=== PATIENT | female | born 1980 | race American Indian/Alaskan Native ===

== ENCOUNTER 2021-04-02 11:49 | Emergency (ER) | payer SELFPAY ==
--- NOTE | 2021-04-02 12:31 | Event Note ---
ED Screening Note Date of service: 04/02/21 Time: 12:28 ED Screening Note: The patient was evaluated in the emergency department for symptoms described in the history of present illness. He/she was evaluated in the context of the global COVID-19 pandemic, which necessitated consideration that the patient might be at risk for infection with the virus that causes COVID-19. Institutional protocols and algorithms that pertain to the evaluation of patients at risk for COVID-19 are in a state of rapid change based on information released by regulatory bodies including the CDC and federal and state organizations. These policies and algorithms were followed during the patient's care in the emergency department. Please note that these policies, procedures and recommendations changed on a rapid basis. 40-year-old -[place] female presents to the emergency room complaining of abdominal pain for the last 2 weeks. She states that has been progressively getting worse. Patient also reports she has been having heavy vaginal bleeding with clots since December. Patient reports she has a history of fibroids and cysts and that is why she got a Depo shot January 14, 2021 but she still is bleeding. She does admit to tiredness. She does admit to intermittent shortness of breath and chest pain but none at this moment. Patient states she has been using toilet paper instead of pads and she is gone through several rows in a day. She states she has pressure down her pelvic area when she passes clots. Patient states she has never been transfused. She told me she does not want have a blood transfusion. This initial assessment/diagnostic orders/clinical plan/treatment(s) is/are subj ect to change based on patients health status, clinical progression and re- assessment by fellow clinical providers in the ED. Further treatment and workup at subsequent clinical providers discretion. Patient/guardian urged not to elope from the ED as their condition may be serious if not clinically assessed and managed. Initial orders include: CBC CMP type and screen PT PTT hCG urinalysis has been ordered. Discussed with patient that her conjunctiva is very pale her fingernail beds are very pale. Discussed with patient that I will place a INT and discussed once we have hard evidence that she is anemic and possibility of blood transfusion patient verbalized understanding. Patient abdomen appears to be firm round and presents as she is close to 7 months which she states that her fibroids.
[2021-04-02 13:19] LABS: Basophils # (Auto) 0.1 K/mm3 (0.0-0.1); Basophils % (Auto) 0.8 % (0.0-1.8); Eosinophils # (Auto) 0.1 K/mm3 (0.0-0.4); Eosinophils % (Auto) 1.4 % (0.0-4.3); Hematocrit 25.1 % (30.3-42.9); Hemoglobin 7.9 gm/dl (10.1-14.3); Lymphocytes # (Auto) 1.5 K/mm3 (1.2-5.4); Mean Corpuscular HGB Conc 32 % (30-34); Mean Corpuscular Volume 76 fl (79-97); Monocytes # (Auto) 0.6 K/mm3 (0.0-0.8); Monocytes % (Auto) 7.4 % (0.0-7.3); Platelet Count 324 K/mm3 (140-440)
[2021-04-02 13:26] LABS: Red Cell Distribution Width 20.7 % (13.2-15.2)
[2021-04-02 13:30] LABS: INR 1.07 (0.87-1.13)
[2021-04-02 13:31] LABS: Partial Thromboplastin Time 27.7 Sec. (24.2-36.6)
[2021-04-02 13:38] LABS: Alanine Aminotransferase 7 units/L (7-56); Albumin 3.8 g/dL (3.9-5); Blood Urea Nitrogen 6 mg/dL (7-17); Hemolysis Index 0
[2021-04-02 13:39] LABS: BUN/Creatinine Ratio 10
[2021-04-02] MEDS ORDERED: traMADol 50 MG TAB PO ONE (14:36)
--- NOTE | 2021-04-02 14:43 | Emergency Department Report ---
ED Female HPI - General Chief complaint: Abdominal Pain Stated complaint: ABD PAINS Time Seen by Provider: 04/02/21 12:26 Source: patient Mode of arrival: Ambulatory Limitations: No Limitations - History of Present Illness Initial comments: 40-year-old female with a past medical history of 15 fibroids and menorrhagia presents to the hospital complaining of worsening abdominal pain x2 weeks with continued vaginal bleeding since December 2020. While incarcerated patient received Depo-Provera shot January 14 for vaginal bleeding. She has continued to have heavy vaginal bleeding with clots since December. She is currently taking Motrin 1200 mg 3 times a day and attempt to alleviate her pain. She is using toilet paper several passes states she is going through several rolls of toilet paper in 1 day. Pain is described as intermittent, sharp, cramping in the pelvic area but radiates to the chest. Patient denies fever. She does not currently have a [facility] doctor. She denies history of blood transfusion in the past. She is not currently taking iron tablets. - Related Data Previous Rx's Medication Instructions Recorded Last Taken Type Docusate Sodium [Colace] 100 mg PO BID PRN #20 capsule 04/02/21 Unknown Rx Famotidine [Pepcid] 20 mg PO BID #30 tablet 04/02/21 Unknown Rx Ferrous Sulfate [Ferrous Sulfate 324 mg PO DAILY #30 tablet. 04/02/21 Unknown Rx 324 MG] HYDROcodone/APAP 5-325 [[place] 1 each PO Q6HR PRN #15 tablet 04/02/21 Unknown Rx 5/325] Ibuprofen [Motrin] 800 mg PO Q8HR PRN #20 tablet 04/02/21 Unknown Rx medroxyPROGESTERone ACETATE 10 mg PO QDAY #10 tablet 04/02/21 Unknown Rx [Provera] Allergies Allergy/AdvReac Type Severity Reaction Status Date / Time No Known Allergies Allergy Verified 04/02/21 11:52 ED Review of Systems ROS: Stated complaint: ABD PAINS Other details as noted in HPI Comment: All other systems reviewed and negative ED Past Medical Hx - Past Medical History Previous Medical History?: Yes Additional medical history: thyroids - Surgical History Past Surgical History?: No - Medications Home Medications: Home Medications Medication Instructions Recorded Confirmed Last Taken Type Docusate Sodium [Colace] 100 mg PO BID PRN #20 capsule 04/02/21 Unknown Rx Famotidine [Pepcid] 20 mg PO BID #30 tablet 04/02/21 Unknown Rx Ferrous Sulfate [Ferrous Sulfate 324 mg PO DAILY #30 tablet. 04/02/21 Unknown Rx 324 MG] HYDROcodone/APAP 5-325 [[place] 1 each PO Q6HR PRN #15 tablet 04/02/21 Unknown Rx 5/325] Ibuprofen [Motrin] 800 mg PO Q8HR PRN #20 tablet 04/02/21 Unknown Rx medroxyPROGESTERone ACETATE 10 mg PO QDAY #10 tablet 04/02/21 Unknown Rx [Provera] ED Physical Exam - General Limitations: No Limitations - Other Other exam information: General: No acute distress Head: Atraumatic Eyes: normal appearance ENT: Moist mucous membranes Neck: Normal appearance, no midline tenderness Chest: Clear to auscultation bilaterally CV: Mild tachycardia Abdomen: Soft, normal bowel sounds, firm enlarged uterus above the umbilicus that is tender to palpation Back: Normal inspection Extremity: Normal inspection, full range of motion Neuro: Alert O x 3, no facial asymmetry, speech clear, no gross motor sensory de ficit Psych: Appropriate behavior Skin: No rash ED Course Vital Signs 04/02/21 04/02/21 11:52 15:22 Temperature 98.7 F 98.5 F Pulse Rate 105 H 88 Respiratory 16 14 Rate Blood Pressure 108/68 111/77 [Left] O2 Sat by Pulse 96 100 Oximetry - Consultations Consultation #1: 04/02/21 15:[address] Velasco who is arrange for outpatient follow-up 1:30 PM. Recommends Provera 10 mg daily x10 days. No other work-up recommended acutely ED Medical Decision Making - Lab Data Result diagrams: 04/02/21 12:35 04/02/21 12:35 Lab Results 04/02/21 04/02/21 04/02/21 Range/Units 12:35 12:35 12:35 WBC 8.5 (4.5-11.0) K/mm3 RBC 3.30 L (3.65-5.03) M/mm3 Hgb 7.9 L (10.1-14.3) gm/dl Hct 25.1 L (30.3-42.9) % MCV 76 L (79-97) fl MCH 24 L (28-32) pg MCHC 32 (30-34) % RDW 20.7 H (13.2-15.2) % Plt Count 324 (140-440) K/mm3 Lymph % (Auto) 18.0 (13.4-35.0) % Heard % (Auto) 7.4 H (0.0-7.3) % Eos % (Auto) 1.4 (0.0-4.3) % Baso % (Auto) 0.8 (0.0-1.8) % Lymph # (Auto) 1.5 (1.2-5.4) K/mm3 Heard # (Auto) 0.6 (0.0-0.8) K/mm3 Eos # (Auto) 0.1 (0.0-0.4) K/mm3 Baso # (Auto) 0.1 (0.0-0.1) K/mm3 Seg Neutrophils % 72.4 H (40.0-70.0) % Seg Neutrophils # 6.2 (1.8-7.7) K/mm3 PT (12.2-14.9) Sec. INR (0.87-1.13) APTT (24.2-36.6) Sec. Sodium 138 (137-145) mmol/L Potassium 4.0 (3.6-5.0) mmol/L Chloride 103.9 (98-107) mmol/L Carbon Dioxide 24 (22-30) mmol/L Anion Gap 14 mmol/L BUN 6 L (7-17) mg/dL Creatinine 0.6 (0.6-1.2) mg/dL Estimated GFR > 60 ml/min BUN/Creatinine Ratio 10 % Glucose 84 (65-100) mg/dL Calcium 9.0 (8.4-10.2) mg/dL Total Bilirubin 0.30 (0.1-1.2) mg/dL AST 12 (5-40) units/L ALT 7 (7-56) units/L Alkaline Phosphatase 64 (35-129) units/L Total Protein 7.6 (6.3-8.2) g/dL Albumin 3.8 L (3.9-5) g/dL Albumin/Globulin Ratio 1.0 % HCG, Quant (0-4) mIU/mL Blood Type A POSITIVE Antibody Screen Negative 04/02/21 04/02/21 Range/Units 12:35 12:35 WBC (4.5-11.0) K/mm3 RBC (3.65-5.03) M/mm3 Hgb (10.1-14.3) gm/dl Hct (30.3-42.9) % MCV (79-97) fl MCH (28-32) pg MCHC (30-34) % RDW (13.2-15.2) % Plt Count (140-440) K/mm3 Lymph % (Auto) (13.4-35.0) % Heard % (Auto) (0.0-7.3) % Eos % (Auto) (0.0-4.3) % Baso % (Auto) (0.0-1.8) % Lymph # (Auto) (1.2-5.4) K/mm3 Heard # (Auto) (0.0-0.8) K/mm3 Eos # (Auto) (0.0-0.4) K/mm3 Baso # (Auto) (0.0-0.1) K/mm3 Seg Neutrophils % (40.0-70.0) % Seg Neutrophils # (1.8-7.7) K/mm3 PT 14.4 (12.2-14.9) Sec. INR 1.07 (0.87-1.13) APTT 27.7 (24.2-36.6) Sec. Sodium (137-145) mmol/L Potassium (3.6-5.0) mmol/L Chloride (98-107) mmol/L Carbon Dioxide (22-30) mmol/L Anion Gap mmol/L BUN (7-17) mg/dL Creatinine (0.6-1.2) mg/dL Estimated GFR ml/min BUN/Creatinine Ratio % Glucose (65-100) mg/dL Calcium (8.4-10.2) mg/dL Total Bilirubin (0.1-1.2) mg/dL AST (5-40) units/L ALT (7-56) units/L Alkaline Phosphatase (35-129) units/L Total Protein (6.3-8.2) g/dL Albumin (3.9-5) g/dL Albumin/Globulin Ratio % HCG, Quant < 2 (0-4) mIU/mL Blood Type Antibody Screen - Medical Decision Making 40-year-old female presents to the hospital with known enlarged uterus secondary to fibroids presents to the hospital with pain for the past 2 weeks and continued bleeding since December. Hemoglobin 7.9 therefore patient does not require blood transfusion at this time. Previous hemoglobin not available for review. Patient does not have [employer] has been noncompliant with follow-up conor jaentte to lack of insurance. No reports of fever or infectious symptoms. Patient taken [id number] Motrin at 1200 mg dosing without improvement. Patient will be discharged on iron tablets, tramadol, stool softeners, Pepcid, Motrin, and Provera. An appointment has been made for this Monday and outpatient follow-up is also medical clinic [employer] will be provided pt requesting norco for pain. states tramadol doesnt work Critical Care Time: No Critical care attestation.: If time is entered above; I have spent that time in minutes in the direct care of this critically ill patient, excluding procedure time. ED Disposition Clinical Impression: Fibroid uterus, Abdominal pain, Menorrhagia, Anemia Disposition: HOME / SELF CARE / HOMELESS Is pt being admited?: No Does the pt Need Aspirin: No Condition: Stable Instructions: Uterine Fibroids, Menorrhagia, Abdominal Pain (ED) Additional Instructions: Take the medication as prescribed. Follow-up with your doctor or doctor/clinic provided. Return if symptoms worsen as indicated by your discharge instructions. Prescriptions: Docusate Sodium [Colace] 100 mg PO BID PRN #20 capsule PRN Reason: Constipation Ferrous Sulfate [Ferrous Sulfate 324 MG] 324 mg PO DAILY #30 tablet. Ibuprofen [Motrin] 800 mg PO Q8HR PRN #20 tablet PRN Reason: Pain , Severe (7-10) HYDROcodone/APAP 5-325 [[place] 5/325] 1 each PO Q6HR PRN #15 tablet PRN Reason: Pain Famotidine [Pepcid] 20 mg PO BID #30 tablet medroxyPROGESTERone ACETATE [Provera] 10 mg PO QDAY #10 tablet Referrals: LEIGH ANN VELASCO MD [Staff Physician] - 04/05/21 1:30 pm ([address] [facility] [address] [place] [address]) [facility] [Provider Group] - 3-5 Days Forms: Work/School Release Form(ED) Time of Disposition: 15:49
[2021-04-02 15:24] VITALS: BP 111/77
[2021-04-02] MEDS ORDERED: HYDROcodone/ACETAMINOPHEN 5-325 MG TAB PO ONE (15:44)
== END 2021-04-02 16:28 | disposition home or self-care (01) ==
LOC: ED 11:49
DX: D25.9 Leiomyoma of uterus, unspecified (principal); N92.0 Excessive and frequent menstruation with regular cycle; D64.9 Anemia, unspecified; Z79.899 Other long term (current) drug therapy
CPT/HCPCS: 36415; 80053; 84702; 85025; 85610; 85730; 86850; 86900; 86901; 99283